=== PATIENT | female | born 1955 | race Caucasian/White ===

== ENCOUNTER 2022-08-16 07:52 | Outpatient (CLI) | payer MEDICARE ==
[2022-08-16] MEDS ORDERED: Iopamidol 370 76% 100 ML VIAL ONE (15:26)
== END 2022-08-16 07:53 | disposition home or self-care (01) ==
LOC: BICCT 07:52 → CT 07:53
PROVIDERS: ATTEND Urology
DX: R31.29 Other microscopic hematuria (principal); R30.0 Dysuria
CPT/HCPCS: 74178; 82565; Q9967

== ENCOUNTER 2022-08-24 13:38 | Outpatient (CLI) | payer MEDICARE | END 2022-08-24 13:39 | disposition home or self-care (01) | LOC: BICMAMMO 13:38 | PROVIDERS: ATTEND Obstetrics & Gynecology | DX: Z12.31 Encounter for screening mammogram for malignant neoplasm of breast (principal); Z80.3 Family history of malignant neoplasm of breast | CPT/HCPCS: 77063; 77067 ==

== ENCOUNTER 2022-12-17 09:28 | Outpatient (CLI) | payer MEDICARE | END 2022-12-17 09:29 | disposition home or self-care (01) | LOC: SCSRAD 09:28 | PROVIDERS: ATTEND Internal Medicine Rheumatology | DX: M54.2 Cervicalgia (principal); M48.02 Spinal stenosis, cervical region; M50.31 Other cervical disc degeneration, high cervical region; Z98.1 Arthrodesis status | CPT/HCPCS: 72040 ==

== ENCOUNTER 2022-12-21 14:52 | Outpatient (CLI) | payer MEDICARE | END 2022-12-21 14:53 | disposition home or self-care (01) | LOC: BICMAMMO 14:52 | PROVIDERS: ATTEND Internal Medicine Rheumatology | DX: Z13.820 Encounter for screening for osteoporosis (principal); M85.851 Other specified disorders of bone density and structure, right thigh; M85.852 Other specified disorders of bone density and structure, left thigh; Z78.0 Asymptomatic menopausal state | CPT/HCPCS: 77080 ==

== ENCOUNTER 2023-07-26 07:02 | Outpatient (CLI) | payer MEDICARE | END 2023-07-26 07:03 | disposition home or self-care (01) | LOC: BICULT 07:02 | PROVIDERS: ATTEND Physician Assistant Medical | DX: R10.13 Epigastric pain (principal); R11.0 Nausea | CPT/HCPCS: 76700 ==

== ENCOUNTER 2024-04-10 08:52 | Outpatient (CLI) | payer MEDICARE | END 2024-04-10 08:53 | disposition home or self-care (01) | LOC: BICMAMMO 08:52 | PROVIDERS: ATTEND Obstetrics & Gynecology | DX: Z12.31 Encounter for screening mammogram for malignant neoplasm of breast (principal); Z80.3 Family history of malignant neoplasm of breast | CPT/HCPCS: 77063; 77067 ==